=== PATIENT | male | born 2000 | race Caucasian/White ===

== ENCOUNTER 2022-10-30 17:25 | Emergency (ER) | payer OTHER ==
[~2022-10-30] VITALS: Ht 182.9 cm; Wt 81.6 kg
[2022-10-30 17:37] VITALS: BP 120/65
--- NOTE | 2022-10-30 19:03 | NUR ---
NO RECTAL BLEEDING NOTED AT THIS TIME. RECTAL EXAM BY DR KENDALL, ASSISTED BY STAFF
[2022-10-30 19:26] LABS: BASOPHILS % (AUTO) 0.4 % (0.0-2.0); EOSINOPHILS # (AUTO) 0.1 K/uL (0-0.4); EOSINOPHILS % (AUTO) 1.3 % (0.0-4.0); HEMATOCRIT 44.5 % (36-52); HEMOGLOBIN 16.1 g/dL (12.0-18.0); LYMPHOCYTES # (AUTO) 2.2 K/uL (2.0-11.5); LYMPHOCYTES % (AUTO) 44.5 % (20.5-51.1); MEAN CORPUSCULAR HEMOGLOBIN 32 pg (27-31); MEAN CORPUSCULAR HGB CONC 36 g/dL (33-37); MEAN CORPUSCULAR VOLUME 89.1 fL (80-94); MONOCYTES # (AUTO) 0.4 K/uL (0.8-1.0); MONOCYTES % (AUTO) 8.6 % (1.7-9.3); NEUTROPHILS # (AUTO) 2.2 K/uL (1.8-7.7); NEUTROPHILS % (AUTO) 45.2 % (42.2-75.2); PLATELET COUNT (AUTO) 215 K/uL (140-450); RED CELL DISTRIBUTION WIDTH 12.5 % (11.6-13.7)
--- NOTE | 2022-10-30 19:33 | NUR ---
PT RC'D FROM [facility], IN ROOM 7, PT IS A 22/M WALKED IN C/O BRIGHT RED BLOOD IN STOOL. PT REPORTS INTERMITTENT BLOOD IN STOOL ONSET 6 MONTHS AGO THAT GOT WORSE TODAY. PT ALSO REPORTS RLQ ABD PAIN. DENIES NVD. PMH: DENIES NKA
[2022-10-30 19:54] LABS: PROTHROMBIN TIME 10.2 secs (10.8-13.4)
[2022-10-30 20:10] LABS: ALBUMIN 4.3 g/dL (3.4-5.0); ANION GAP 10.8 (8-16); CARBON DIOXIDE 29.1 mmol/L (21-32); CREATININE 0.9 mg/dL (0.6-1.3); POTASSIUM 3.9 mmol/L (3.5-5.1)
[2022-10-30 20:33] LABS: TOTAL BILIRUBIN 1.3 mg/dL (0.0-1.0)
--- NOTE | 2022-10-30 21:30 | NUR ---
RN INFORMED PT THAT WE ARE STILL AWAITING CT RESULTS AND WILL PROCEDE WHEN WE GET THEM.
[2022-10-30] MEDS ORDERED: MIRABULK PO (22:24)
[2022-10-30 22:32] VITALS: BP 122/85
== END 2022-10-30 22:32 | disposition home or self-care (01) ==
LOC: MED 17:25
DX: K92.1 Melena (principal); K59.00 Constipation, unspecified; Z79.899 Other long term (current) drug therapy
CPT/HCPCS: 36415; 80053; 85025; 85610; 85730; 99284